=== PATIENT | male | born 2000 | race Caucasian/White ===

== ENCOUNTER 2021-01-18 02:43 | Observation (INO) | payer SELFPAY ==
[~2021-01-18] VITALS: Ht 182.9 cm; Wt 79.5 kg
--- NOTE | 2021-01-18 02:49 | NUR ---
PT MOVED TO ROOM 10 FOR TRIAGE.
[2021-01-18 03:20] LABS: HEMOGLOBIN 14.5 g/dl (14.0-18.0); IMMATURE GRANULOCYTES 0.6 % (0.0-5.0); MEAN CELL VOLUME 89.1 fL CALC (80.0-100.0); MEAN CORPUSCULAR HGB 29.4 pG CALC (26.0-32.0); NEUT# 13.25 thou/uL (1.82-7.42); RED BLOOD COUNT 4.94 mill/uL (4.70-6.10)
[2021-01-18 03:20] LABS: URINE BLOOD DIPSTICK LARGE (NEGATIVE); URINE COLOR YELLOW; URINE GLUCOSE - DIPSTICK NEGATIVE (NEGATIVE); URINE KETONE 15 mg/dL (NEGATIVE); URINE LEUK ESTERASE NEGATIVE (NEGATIVE); URINE PH 6.5 (4.5-8.0); URINE PROTEIN - DIPSTICK >=300 mg/dL (NEG-TRACE); URINE SPECIFIC GRAVITY 1.025
[2021-01-18 03:24] LABS: URINE BILIRUBIN - DIPSTICK NEGATIVE (NEGATIVE); URINE NITRITE - DIPSTICK POSITIVE (Negative)
[2021-01-18 03:31] LABS: URINE RBC >100 RBC/hpf (0-5)
[2021-01-18 03:32] LABS: URINE SQUAMOUS EPITHELIAL CELL FEW EPI/hpf (0-FEW)
[2021-01-18 03:32] LABS: ALBUMIN 4.7 g/dL (3.2-5.0); ALKALINE PHOSPHATASE 48 u/l (38-126); ANION GAP 16 (6-22 (CALC)); BILIRUBIN, TOTAL 1.1 mg/dL (0.0-1.4); BUN 6 mg/dL (9-20); BUN/CREATININE RATIO 7 (12-20 (CALC)); CARBON DIOXIDE 23 mmol/l (22-30); CHLORIDE 102 mmol/l (95-108); CREATININE 0.9 mg/dL (0.7-1.3); GFR > 60 ML/MIN (>=60 (CALC)); GFR FOR AFR.AMER. > 60 ML/MIN (>=60 (CALC)); POTASSIUM 4.8 mmol/l (3.5-5.1); SGOT/AST 44 u/l (17-59); SODIUM 137 mmol/l (137-146); TOTAL PROTEIN 7.8 g/dL (6.3-8.2)
[2021-01-18 03:35] LABS: ACT PARTIAL THROMBO TIME 22.3 SECONDS (20.0-32.5); PROTHROMBIN TIME 10.8 SECONDS (9.0-12.5)
--- NOTE | 2021-01-18 04:50 | NUR ---
COVID SWAB COLLECTED.
--- NOTE | 2021-01-18 04:55 | NUR ---
REPORT CALLED TO Robby LAU RN.
--- NOTE | 2021-01-18 05:15 | NUR ---
PT LAYING DOWN, EYES CLOSED, RESPIRATIONS REGULAR AND UNLABORED. APPEARS COMFORTABLE AND IN NO DISTRESS. S/O AT SITTING AT BEDSIDE.
--- NOTE | 2021-01-18 06:00 | NUR ---
Admission Note Report Given to: F. SID Transported by: Wheelchair X Stretcher Transported with: X Nurse Transporter Patent IV O2 Pharmacy Coordinator Location: ICU X [facility]
--- NOTE | 2021-01-18 06:14 | NUR ---
PT ARRIVED TO MED SURG VIA STRETCHER ACCOMPANIED BY ED NURSE. PT APPEARS TO BE IN STABLE CONDITION, SELF AMBULATED TO THE BED. PT IS VERY GROGGY. IVF STARTED TO PERIPHERAL IN LAC/SITE APPEARS PATENT AND HEALTHY. PT ORIENTED TO THE ROOM CALL SYSTEM.
--- NOTE | 2021-01-18 06:19 | NUR ---
PT MEDICATED WITH TYLENOL PER REQUEST.
[2021-01-18 06:39] VITALS: BP 107/59
--- NOTE | 2021-01-18 07:00 | NUR ---
PT REPORT RECEIVED FROM NIGHT NURSEVLADIMIR
--- NOTE | 2021-01-18 08:00 | NUR ---
PT WAS FOUND SLEEPING IN BED;PT AROUSED TO VERBAL STIMULI;PT IS A&OX3;VS AND ASSESSMENT WERE COMPLETED;ARM BANDS WERE PLACED ON PT;PT ORIENTED TO ROOM,CALL LIGHT AND BED;PT BELONGING INVENTORY WAS COMPLETED;HEART SOUNDS ARE REGULAR IN RATE AND RHYTHM;LUNG SOUNDS ARE CLEAR;RESPIRATIONS ARE EVEN AND UNLABORED ON RA;ABDOMEN IS SOFT AND ACTIVE BOWEL SOUNDS IN ALL QUADRANTS;#20G IV IN LAC IS RUNNING NS@125 ML/HR;IV SITE IS PATENT AND APPEARS FREE OF COMPLICATIONS AT THIS TIME;PT WAS PREVIOUSLY MEDICATED AND IS REPORTING NO PAIN AT THIS TIME;SAFETY PRECAUTIONS IN PLACE;CALL LIGHT WITHIN REACH;PT ENCOURAGED TO CALL WITH ANY ISSUES OR CONCERNS;WILL CONTINUE TO MONITOR.
[2021-01-18 08:34] VITALS: BP 108/58
--- NOTE | 2021-01-18 12:00 | NUR ---
PT WAS FOUND RESTING IN BED;PT WAS MEDICATED WITH MORPHINE 4MG IV FOR FLANK AND LOWER BACK PAIN;IV IS INFUSING;SAFETY PRECAUTIONS IN PLACE;CALL LIGHT WITHIN REACH;WILL CONTINUE TO MONITOR.
[2021-01-18 15:34] VITALS: BP 115/62
--- NOTE | 2021-01-18 16:00 | NUR ---
PT WAS FOUND RESTING IN BED WITH GIRLFRIEND AT BEDSIDE;PT IS REPORTING PAIN IS CONTROLLED AT THIS TIME;#20G IV IN LAC IS RUNNING NS@125ML/HR;IV SITE APPEARS PATENT AND FREE OF COMPLICATIONS AT THIS TIME;SAFETY PRECAUTIONS IN PLACE;CALL LIGHT WITHIN REACH;WILL CONTINUE TO MONITOR.
--- NOTE | 2021-01-18 18:42 | NUR ---
CALL WAS MADE TO EXPRESSING PT DESIRE TO LEAVE DUE TO NOT HAVING HEALTH INSURANCE AND NOT BEING TO AFFORD A LONG HOSPITAL STAY; STATED THAT HE WOULD BE WILLING TO PUT IN DISCHARGE ORDERS FOR PT TO LEAVE DUE TO GIVING HIM THE OPTION DURING MORNING ROUNDS THUS AVOIDING PT HAVING TO LEAVE AMA;PT WAS AGREEABLE AND WILL BE DISCHARGED LATER TONIGHT.
[2021-01-18] MEDS ORDERED: PERCOCET 5/325M1 TAB PO (19:18)
--- NOTE | 2021-01-18 20:00 | NUR ---
RECEIVED REPORT FROM MS. GLADYS SERRANO. PT PENDING TO PAIN MEDICATIONS AND THEN DISCHARGE, PER DR. SHAN GUILLORY. EDUCATED PT ABOUT DISCHARGE PROCESS.
--- NOTE | 2021-01-18 20:45 | NUR ---
PT DISCHARGE AFTER PAIN MEDICATIONS(SEE EMAR) AND PER DR. TORREZ ORDER. DISCHARGE INSTRUCTIONS PROVIDED, SIGNED AND PRINTED BY PROTOCOL. TRANSPORTED PT BY WHEELCHAIR WITH GARY SCHILLING. MS. GALE DUNBAR (SIGNICANT OTHER) ELEVATOR ATTENDANT PT AT ER.
== END 2021-01-18 20:45 | disposition home or self-care (01) | DRG 999 ==
LOC: ED 02:43 → ED-I 04:30 → ED 04:47 → MS2 04:48
PROVIDERS: Family Medicine; ADMIT Internal Medicine; ATTEND Internal Medicine
DX: S37.052A Moderate laceration of left kidney, initial encounter (principal); S22.43XA Multiple fractures of ribs, bilateral, initial encounter for closed fracture; S27.0XXA Traumatic pneumothorax, initial encounter; V80.018A Animal-rider injured by fall from or being thrown from other animal in noncollision accident, initial encounter; Y93.59 Activity, other involving other sports and athletics played individually; Y92.39 Other specified sports and athletic area as the place of occurrence of the external cause; Z20.822 Contact with and (suspected) exposure to COVID-19
CPT/HCPCS: G0378; Q9967

== ENCOUNTER 2021-01-19 19:32 | Emergency (ER) | payer SELFPAY ==
[~2021-01-19] VITALS: Ht 182.9 cm; Wt 81.0 kg
[~2021-01-19 19:32] MED LIST: PERCOCET 5/325M1 TAB PO
[2021-01-19 20:32] LABS: HEMOGLOBIN 13.8 g/dl (14.0-18.0); IMMATURE GRANULOCYTES 0.1 % (0.0-5.0); MEAN CELL VOLUME 89.7 fL CALC (80.0-100.0); MEAN CORPUSCULAR HGB 29.5 pG CALC (26.0-32.0); MEAN CORPUSCULAR HGB CONC 32.9 g/dL CAL (32.0-36.0); NEUT# 10.2 thou/uL (1.82-7.42); RED BLOOD COUNT 4.68 mill/uL (4.70-6.10); RED CELL DISTRI WIDTH 12.8 % (11.5-15.5)
[2021-01-19 20:33] LABS: URINE BILIRUBIN - DIPSTICK NEGATIVE (NEGATIVE); URINE BLOOD DIPSTICK LARGE (NEGATIVE); URINE COLOR YELLOW; URINE GLUCOSE - DIPSTICK NEGATIVE (NEGATIVE); URINE KETONE 15 mg/dL (NEGATIVE); URINE LEUK ESTERASE NEGATIVE (NEGATIVE); URINE PROTEIN - DIPSTICK NEGATIVE (NEG-TRACE); URINE SPECIFIC GRAVITY 1.025; URINE UROBILINOGEN - DIPSTICK 0.2 E.U./dL (0.2)
[2021-01-19 20:38] LABS: URINE NITRITE - DIPSTICK NEGATIVE (Negative)
[2021-01-19 20:40] LABS: URINE WBC 0-2 WBC/hpf (0-5)
[2021-01-19 20:47] LABS: ALBUMIN 4.2 g/dL (3.2-5.0); ALKALINE PHOSPHATASE 46 u/l (38-126); ANION GAP 13 (6-22 (CALC)); BILIRUBIN, TOTAL 1.1 mg/dL (0.0-1.4); BUN 8 mg/dL (9-20); BUN/CREATININE RATIO 7 (12-20 (CALC)); CHLORIDE 99 mmol/l (95-108); CREATININE 1.2 mg/dL (0.7-1.3); GFR > 60 ML/MIN (>=60 (CALC)); GFR FOR AFR.AMER. > 60 ML/MIN (>=60 (CALC)); POTASSIUM 4.4 mmol/l (3.5-5.1); SGOT/AST 40 u/l (17-59); SODIUM 136 mmol/l (137-146); TOTAL PROTEIN 7.5 g/dL (6.3-8.2)
[2021-01-19 20:53] LABS: CARBON DIOXIDE 28 mmol/l (22-30)
[2021-01-20] VITALS: BP 146/78
== END 2021-01-20 00:05 | disposition short-term general hospital (02) | DRG 999 ==
LOC: ED 19:32
PROVIDERS: Emergency Medicine
DX: S37.052A Moderate laceration of left kidney, initial encounter (principal); S22.43XA Multiple fractures of ribs, bilateral, initial encounter for closed fracture; S27.0XXA Traumatic pneumothorax, initial encounter; F17.200 Nicotine dependence, unspecified, uncomplicated; V80.018A Animal-rider injured by fall from or being thrown from other animal in noncollision accident, initial encounter; Y93.59 Activity, other involving other sports and athletics played individually; Y92.39 Other specified sports and athletic area as the place of occurrence of the external cause
CPT/HCPCS: Q9967